=== PATIENT | male | born 2005 | race Caucasian/White ===

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

== ENCOUNTER 2025-02-13 15:36 | Emergency (ER) | payer SELFPAY ==
[~2025-02-13] VITALS: Ht 167.6 cm; Wt 95.3 kg
[~2025-02-13 15:36] MED LIST changes: +Ondansetron4 MG PO
[2025-02-13 16:09] LABS: BASO # 0.1 10*3/uL (0.0-0.1); BASO % 1.3 % (0.0-1.0); EOS # 0.1 10*3/uL (0.0-0.4); EOS % 2.1 % (1.0-4.0); MEAN CELL VOLUME 83.9 fl (80.0-94.0); MEAN CORPUSCULAR HGB 29.3 pg (27.0-31.0); MEAN PLATELET VOLUME 9.1 fl (9.6-12.3); MONO # 0.7 10*3/uL (0.1-1.0); MONO % 10.8 % (3.0-9.0); NEUT # 3.1 10*3/uL (2.3-7.9); NEUT % 48.4 % (47.0-73.0); NUCLEATED RED BLOOD CELL 0.0 % (0.0-0.0); NUCLEATED RED BLOOD CELL 0.0 10*3/uL (0.0-0.0); PLATELET COUNT AUTOMATED 290 10*3/uL (130-400); RED CELL DISTRI WIDTH 11.5 % (0-14.5)
[2025-02-13 16:28] LABS: BUN 11 mg/dl (9-23)
== END 2025-02-13 17:25 | disposition home or self-care (01) ==
LOC: ED 15:36
PROVIDERS: Nurse Practitioner Family
DX: K90.49 Malabsorption due to intolerance, not elsewhere classified (principal); E11.9 Type 2 diabetes mellitus without complications; R42 Dizziness and giddiness

== ENCOUNTER 2025-03-16 22:51 | Emergency (ER) | payer SELFPAY ==
[~2025-03-16] VITALS: Ht 167.6 cm; Wt 99.3 kg
[2025-03-17] MEDS ORDERED: DRAMAMINE25 M4 PO (01:02)
== END 2025-03-17 01:10 | disposition home or self-care (01) ==
LOC: ED 22:51
DX: R42 Dizziness and giddiness (principal); M54.2 Cervicalgia; R51.9 Headache, unspecified; J45.909 Unspecified asthma, uncomplicated; F90.9 Attention-deficit hyperactivity disorder, unspecified type